=== PATIENT | female | born 1985 | race Caucasian/White ===

== ENCOUNTER 2021-10-14 09:12 | Emergency (ER) | payer OTHER ==
[~2021-10-14] VITALS: Ht 167.6 cm; Wt 48.1 kg
[2021-10-14 10:29] VITALS: BP 124/66
[2021-10-14 10:59] LABS: U PREG PATIENT NEGATIVE (NEG)
[2021-10-14 11:10] LABS: BACTERIA,URINE MANY /HPF (0-FEW); RBC,URINE >40 /HPF (0-2)
--- NOTE | 2021-10-14 11:12 | PHYS DOC ---
Past Medical History Past Medical History: UTI Additional Past Medical Histor: BV (JUNE MOLINA APRN) Past Surgical History: No Surgical History (JUNE MOLINA APRN) Smoking Status: Current Every Day Smoker Alcohol Use: None (JUNE MOLINA APRN) General Adult EDM: Chief Complaint: MULTIPLE COMPLAINTS HPI: HPI: Patient is a 36-year-old female who presents today with tooth pain and right flank pain. Patient states that she noticed a cracked tooth about a 7 days ago in her left lower jaw, she said it has been bothering her for the last 3 days, she states that she has not seen a dentist in the last couple of years, she does have a partial in her lower jaw as well, she says she smokes on a daily basis. Patient also is complaining of painful and frequency in urination for the last couple of days she said the last day or so she has had increased pain in her right flank area, she denies nausea and vomiting or diarrhea, she also states she has not had any fever or chills. Patient states she is currently on her men strual cycle, but prior to her menstrual cycle starting she has some vaginal discharge. Patient states she has a past medical history of a tubal ligation which was over 10 years ago. (JUNE MOLINA APRN) Review of Systems: Review of Systems: Constitutional: Denies fever or chills. [] Eyes: Denies change in visual acuity. [] HENT: left lower jaw pain Denies nasal congestion or sore throat. [] Respiratory: Denies cough or shortness of breath. [] Cardiovascular: Denies chest pain or edema. [] GI: abdominal pain, denies nausea, vomiting, bloody stools or diarrhea. [] : dysuria frequency. [] Musculoskeletal: Denies back pain or joint pain. [] Integument: Denies rash. [] Neurologic: Denies headache, focal weakness or sensory changes. [] Endocrine: Denies polyuria or polydipsia. [] Lymphatic: Denies swollen glands. [] Psychiatric: Denies depression or anxiety. [] (JUNE MOLINA APRN) Heart Score: C/O Chest Pain: No Risk Factors: Risk Factors: DM, Current or recent (<one month) smoker, HTN, HLP, family history of CAD, obesity. Risk Scores: Score 0 - 3: 2.5% MACE over next 6 weeks - Discharge Home Score 4 - 6: 20.3% MACE over next 6 weeks - Admit for Clinical Observation Score 7 - 10: 72.7% MACE over next 6 weeks - Early Invasive Strategies (JUNE MOLINA APRN) Allergies: Allergies: Allergies Coded Allergies Type Severity Reaction Last Updated Verified acetaminophen Allergy Intermediate Hives 10/14/21 Yes (JUNE MOLINA APRN) Physical Exam: PE: Constitutional: Well developed, well nourished, no acute distress, non-toxic appearance. [] HENT: Left lower jaw pain patient has a back molar that does have a cavity in it but it looks like it is partially cracked, she does have a partial in place and she does have a cracked tooth in front of the molar molar that hurts as well, no jaw swelling no facial swelling noted Eyes: PERRLA, EOMI, conjunctiva normal, no discharge. [] Neck: Normal range of motion, no tenderness, supple, no stridor. [] Cardiovascular:Heart rate regular rhythm, no murmur [] Lungs & Thorax: Bilateral breath sounds clear to auscultation [] Abdomen: Abdomen is soft and nontender, bowel sounds are normal, no pulsatile masses noted Skin: Warm, dry, no erythema, no rash. [] Back: No tenderness, right CVA tenderness. [] Extremities: No tenderness, no cyanosis, no clubbing, ROM intact, no edema. [] Neurologic: Alert and oriented X 3, normal motor function, normal sensory function, no focal deficits noted. [] Psychologic: Affect normal, judgement normal, mood normal. [] (JUNE MOLINA CUT OFF MACHINE OPERATOR) Current Patient Data: Labs: Laboratory Tests Test 10/14/21 10:43 Urine Collection Type Unknown Urine Color (Auto) Light orange Urine Turbidity Hazy Urine pH (Auto) 6.0 Urine Specific [place] 1.011 Urine Protein (Auto) Negative mg/dL Urine Glucose (Auto)(UA) Negative mg/dL Urine Ketones (Auto) Negative mg/dL Urine Blood (Auto) Large Urine Nitrite Positive Urine Bilirubin (Auto) Negative Urine Urobilinogen (Auto) Normal mg/dL Urine Leukocyte Esterase (Auto) Negative Urine RBC >40 /HPF Urine WBC 1-4 /HPF Urine Squamous Epithelial Cells Few /LPF Urine Bacteria Many /HPF Urine Test Negative Current Medications Medications (Trade) Dose Ordered Sig/Nadya Route PRN Reason Start Time Stop Time Status Last Admin Dose Admin Ceftriaxone Sodium (Rocephin Im) 500 mg 1X ONCE IM 10/14/21 11:30 10/14/21 11:31 UNV Laboratory Tests Test 10/14/21 10:43 Urine Test Negative (NEG) Vital Signs: Vital Signs Date Time Temp Pulse Resp B/P (MAP) Pulse Ox O2 Delivery O2 Flow Rate FiO2 10/14/21 10:29 98.4 97 16 124/66 (85) 96 98.4 Vital Signs Date Time Temp Pulse Resp B/P (MAP) Pulse Ox O2 Delivery O2 Flow Rate FiO2 10/14/21 10:29 98.4 97 16 124/66 (85) 96 98.4 (JUNE MOLINA APRN) EKG: EKG: [] (JUNE MOLINA APRN) Radiology/Procedures: Radiology/Procedures: [] (JUNE MOLINA APRN) Course & Med Decision Making: Course & Med Decision Making Pertinent Labs and Imaging studies reviewed. (See chart for details) I reviewed patient's laboratory results with her and did inform her that she does indeed have a urinary tract infection, I did inform her that we will treat her with Augmentin because that will cover both her tooth infection and her urinary tract infection, she declined that she wishes to only be placed on amoxicillin for her tooth and she would rather be placed on another antibiotic for her urinary tract infection, patient was also informed that she had bacterial vaginosis as well and that we will need to be placed on Flagyl. Patient is agreeable with being placed on amoxicillin, cephalexin, and Flagyl. For patient's pain I will give her Motrin 600 mg, patient will also be given a list of dental clinics that she can follow-up with for further evaluation and management of her dental issues as well as a list of primary care physicians that she can set up medical management for all her medical issues. (JUNE MOLINA APRN) Dragon Disclaimer: Dragon Disclaimer: This electronic medical record was generated, in whole or in part, using a voice recognition dictation system. (JUNE MOLINA APRN) Departure Departure Impression: Primary Impression: Urinary tract infection Qualified Codes: N30.01 - Acute cystitis with hematuria Additional Impressions: Bacterial vaginosis Pain, dental Disposition: HOME / SELF CARE / HOMELESS Condition: STABLE Referrals: NO PCP (PCP) Patient Instructions: Bacterial Vaginosis, Dental Pain, Urinary Tract Infection Additional Instructions: Amoxicillin 500 mg take 1 tablet twice daily for 10 days Flagyl 500 mg take 1 tablet twice daily for 7 days Cephalexin 500 mg take 1 tablet twice daily for 10 days Follow-up with your primary dentist or one of the listed clinics on the list that were provided for you for further evaluation and management of your dental pain Follow-up with your primary care physician or one of the prime physicians listed on the brochure or one of the listed clinics below for further evaluation and management of your urinary tract infection Return to the emergency department should you develop a fever, increased abdominal pain, or inability to take any by mouth medications due to nausea and vomiting. [facility] [address] [place] [address] [facility] [address] [place] [address] [facility] [address] [facility] [place] [address] [facility] [address] [place] [address] [facility] [address] [place] [address] [facility] [address] [place] [address] [facility] [address] [place] [address] [facility] [place] [address] [place] [address] [facility] [address] [place] [address] [facility] [address] [place] [address] Scripts Ibuprofen (IBUPROFEN) 600 Mg Tablet 600 MG PO PRN Q6HRS PRN for INFLAMMATION, #30 TAB Prov: JUNE OMLINA CUT OFF MACHINE OPERATOR 10/14/21 Metronidazole (METRONIDAZOLE) 500 Mg Tablet 1 TAB PO BID for 7 Days, #14 TAB 0 Refills Prov: JUNE MOLINA APRN 10/14/21 Amoxicillin (AMOXICILLIN) 500 Mg Capsule 1 CAP PO BID, #20 CAP Prov: JUNE MOLINA CUT OFF MACHINE OPERATOR 10/14/21 Cephalexin (CEPHALEXIN) 500 Mg Tablet 1 CAP PO BID, #20 CAP Prov: JUNE MOLINA APRN 10/14/21 Attending Signature Attending Signature I have reviewed the PA/PHONOGRAPH NEEDLE TIP MAKER's note and plan of care. I was available for consultation as needed during the patient's visit in the emergency department. I agree with the clinical impression, plan, and disposition. (MAGDALENA HDEZ DO) JUNE MOLINA APRN October 14, 2021 11:12 MAGDALENA HDEZ DO October 14, 2021 17:55
[2021-10-14] MEDS ORDERED: cefTRIAXone IM 500 MG VIAL. IM ONE (11:30)
[2021-10-14] MEDS ORDERED: METR-34 PO (11:41)
[2021-10-14] MEDS ORDERED: IBUP-1007 PO (11:41)
[2021-10-14] MEDS ORDERED: AMOX500C PO (11:41)
[2021-10-14] MEDS ORDERED: CEPH500T PO (11:41)
[2021-10-15 13:12] LABS: GC PROBE Negative (Negative)
== END 2021-10-14 11:59 | disposition home or self-care (01) ==
LOC: ER 09:12
DX: N30.01 Acute cystitis with hematuria (principal); N76.0 Acute vaginitis; B96.89 Other specified bacterial agents as the cause of diseases classified elsewhere; K08.89 Other specified disorders of teeth and supporting structures; F17.200 Nicotine dependence, unspecified, uncomplicated; Z88.6 Allergy status to analgesic agent
CPT/HCPCS: 81001; 81025; 87077; 87086; 87186; 87491; 87591; 96372; 99283; J0696; Q0111